=== PATIENT | male | born 1980 | race Caucasian/White ===

== ENCOUNTER 2018-10-19 16:46 | Emergency (ER) | payer OTHER ==
[~2018-10-19] VITALS: Ht 177.8 cm; Wt 99.8 kg
[~2018-10-19 16:46] MED LIST: ESOM40CA PO
[2018-10-19] MEDS ORDERED: IV NORMAL SALINE 1000ML BAG 1,000 ML IV SCH (17:05)
[2018-10-19 17:15] LABS: BASO % 1 % (0-3); EOS # 0.1 x10^3/uL (0.0-0.7); EOS % 1 % (0-3); HEMATOCRIT 39.6 % (39.0-53.0); HEMOGLOBIN 13.5 g/dL (13.0-17.5); LYMPH # 2.6 x10^3/uL (1.0-4.8); LYMPH % 33 % (24-48); MEAN CORPUSCULAR HEMOGLOBIN 30 pg (25-35); MEAN CORPUSCULAR HGB CONC 34 g/dL (31-37); MEAN CORPUSCULAR VOLUME 88 fL (79-100); MONO # 0.5 x10^3/uL (0.0-1.1); MONO % 6 % (0-9); NEUT # 4.8 x10^3uL (1.8-7.7); NEUT % 60 % (31-73); PLATELET COUNT 298 x10^3/uL (140-400); RED BLOOD COUNT 4.53 x10^6/uL (4.30-5.70); RED CELL DISTRIBUTION WIDTH 13.5 % (11.5-14.5); WHITE BLOOD COUNT 7.9 x10^3/uL (4.0-11.0)
[2018-10-19] MEDS ORDERED: ONDANSETRON PF 4 MG/2 ML VIAL. IV ONE (17:15)
[2018-10-19 17:24] LABS: PROTHROMBIN TIME PATIENT 13.5 SEC (11.7-14.0)
[2018-10-19 17:32] LABS: CALCIUM 9.7 mg/dL (8.5-10.1); CREATININE 1.2 mg/dL (0.7-1.3); GFR 67.8
[2018-10-19] MEDS: MORPHINE SULFATE 4 MG/ML VIAL. IV/SQ PRN ×2 (17:33→19:11)
[2018-10-19 17:37] LABS: ALBUMIN 4.3 g/dL (3.4-5.0); ALBUMIN/GLOBULIN RATIO 1.2 (1.0-1.7); MAGNESIUM 2.1 mg/dL (1.8-2.4); TOTAL BILIRUBIN 0.8 mg/dL (0.2-1.0); TOTAL PROTEIN 7.8 g/dL (6.4-8.2)
--- NOTE | 2018-10-19 17:58 | RAD ---
CHEST PA LATERAL Technique: PA and lateral views of the chest were obtained. Clinical History: ER PATIENT. ATRAUMATIC CHEST PAIN, NAUSEA, LIGHT-HEADED. Hx LEFT LOBECTOMY. NO PRIORS Comparison: None. Findings: The heart and pulmonary vasculature appear within normal limits. The lungs are clear. The pleural margins are clear. Impression: No acute chest process is seen. Electronically signed by: Familia Valdez III, MD (10/19/2018 5:55 PM) [facility]
[2018-10-19] MEDS ORDERED: IOHEXOL 350 MG/ML 100 ML VIAL. IV ONE (19:00)
[2018-10-19] MEDS ORDERED: CONTRAST GIVEN. MC PRN (19:00)
--- NOTE | 2018-10-19 19:41 | RAD ---
CTA chest abdomen and pelvis with contrast: History: Chest pain radiating to back "bulge on my aorta" Axial helical images of the chest abdomen and pelvis were obtained after the administration of 90 cc IV Omni 350 contrast. Timing is appropriate for arterial evaluation and multiplanar reconstruction was performed on a separate imaging workstation including 3-D maximum intensity projected imaging and 3-D arterial surface rendering. Comparison: none CTA OF THE CHEST WITH IV CONTRAST: The ascending thoracic aorta measures 3.9 cm in diameter. There is no dissection or thrombus. There is no mediastinal hematoma. The great vessels have a normal origin from the aortic arch. There is no mediastinal lymphadenopathy or hematoma. There is no hilar lymphadenopathy. There is vague patchy opacity in the lingula. Impression: 1. Vague lingular infiltrate could be discoid atelectasis or early pneumonia. 2. Dilated ascending thoracic aorta. End Impression CTA OF THE ABDOMEN WITH IV CONTRAST: Evaluation of the solid organs is limited by the arterial phase of imaging. The aorta and great vessels appear normal. There has been prior cholecystectomy. Liver: Unremarkable Spleen: Unremarkable Pancreas: Unremarkable Adrenal Glands: Unremarkable Kidneys: Unremarkable Evaluation of stomach and bowel is limited without oral contrast. There is no mass or lymphadenopathy. There is no free air. There is no free fluid. Impression: No acute findings. End Impression CTA OF THE PELVIS WITH IV CONTRAST: There has been prior appendectomy. There is no lymphadenopathy or free fluid. The bladder appears normal without extravasation of contrast. There is no pericolonic inflammation. Impression: No acute findings. End impression PQRS Compliance Statement: One or more of the following individualized dose reduction techniques were utilized for this examination: 1. Automated exposure control 2. Adjustment of the mA and/or kV according to patient size 3. Use of iterative reconstruction technique Electronically signed by: Familia Valdez III, MD (10/19/2018 7:38 PM) [facility]
[2018-10-19 21:08] VITALS: BP 128/75
[2018-10-19] MEDS ORDERED: PRED20TA PO (21:21)
[2018-10-19] MEDS ORDERED: AZIT1PAC9 PO (21:21)
--- NOTE | 2018-10-19 21:21 | PHYS DOC ---
Past Medical History Past Medical History: Diverticulosis, GERD Additional Past Medical Histor: AORTIC BULGE, SPONTANEOUS LUNG COLLAPSE (TACO FIELDS) Past Surgical History: Appendectomy, Cholecystectomy (TACO FIELDS) Alcohol Use: Occasionally Drug Use: None (TACO FIELDS) Adult General Chief Complaint Chief Complaint: CHEST PAIN HPI HPI Patient is a 38 year old M who reports he developed chest pain about 20 minutes prior to arrival while driving in his car. He feels the pain substernal and in his upper back. Pt reports some nausea associated with the pain. 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 He also was told he has a "bulge" on his aorta. Pt is not sure if this was an aneurysm or what it was and is not sure where it is located. (TACO FIELDS) Review of Systems Review of Systems Constitutional: Denies fever or chills Eyes: Denies change in visual acuity, redness, or eye pain HENT: Denies nasal congestion or sore throat Respiratory: Denies cough. Reports mild shortness of breath. Cardiovascular: Reports chest pain. GI: Denies abdominal pain, vomiting, bloody stools or diarrhea. Reports nausea. : Denies dysuria or hematuria Musculoskeletal: Denies back pain Integument: Denies rash or skin lesions Neurologic: Denies headache, focal weakness or sensory changes Endocrine: Denies polyuria or polydipsia All other systems were reviewed and found to be within normal limits, except as documented in this note. (TACO FIELDS) Current Medications Current Medications Current Medications Medications (Trade) Dose Ordered Sig/Miller Start Time Stop Time Status Last Admin Dose Admin Info (CONTRAST GIVEN -- Rx MONITORING) 1 each PRN DAILY PRN 10/19/18 19:00 10/19/18 21:51 DC Iohexol (Omnipaque 350 Mg/ml) 100 ml STK-MED ONCE 10/20/18 00:33 10/20/18 00:34 DC Morphine Sulfate (Morphine Sulfate) 4 mg PRN Q15MIN PRN 10/19/18 17:15 10/19/18 21:51 DC 10/19/18 19:11 4 MG Ondansetron HCl (Zofran) 4 mg 1X ONCE 10/19/18 17:15 10/19/18 17:16 DC 10/19/18 17:33 4 MG Sodium Chloride 1,000 ml @ 100 mls/hr Q10H 10/19/18 17:05 10/19/18 21:51 DC 10/19/18 17:32 100 MLS/HR (CHANELLE PARSON DO) Allergies Allergies Allergies Coded Allergies Type Severity Reaction Last Updated Verified No Known Drug Allergies 02/18/16 No (CHANELLE PARSON DO) Physical Exam Physical Exam Constitutional: Well developed, well nourished, no acute distress, non-toxic appearance. HENT: Normocephalic, atraumatic, bilateral external ears normal, oropharynx moist, no oral exudates, nose normal. Eyes: PERRLA, EOMI, conjunctiva normal, no discharge. Neck: Normal range of motion, no tenderness, supple, no stridor. Cardiovascular:Heart rate regular rhythm, no murmur Lungs & Thorax: Bilateral breath sounds clear to auscultation Abdomen: Bowel sounds normal, soft, no tenderness, no masses, no pulsatile masses. Skin: Warm, dry, no erythema, no rash. Back: No tenderness, no CVA tenderness. Extremities: No tenderness, no cyanosis, no clubbing, ROM intact, no edema. Neurologic: Alert and oriented X 3, normal motor function, normal sensory function, no focal deficits noted. Psychologic: Affect normal, judgement normal, mood normal. (TACO FIELDS) Current Patient Data Vital Signs Vital Signs Date Time Temp Pulse Resp B/P (MAP) Pulse Ox O2 Delivery O2 Flow Rate FiO2 10/19/18 21:08 60 15 128/75 (92) 98 Room Air 10/19/18 17:00 98.3 98.3 (CHANELLE PARSON DO) Lab Values Laboratory Tests Test 10/19/18 17:05 10/19/18 20:45 White Blood Count 7.9 x10^3/uL (4.0-11.0) Red Blood Count 4.53 x10^6/uL (4.30-5.70) Hemoglobin 13.5 g/dL (13.0-17.5) Hematocrit 39.6 % (39.0-53.0) Mean Corpuscular Volume 88 fL (79-100) Mean Corpuscular Hemoglobin 30 pg (25-35) Mean Corpuscular Hemoglobin Concent 34 g/dL (31-37) Red Cell Distribution Width 13.5 % (11.5-14.5) Platelet Count 298 x10^3/uL (140-400) Neutrophils (%) (Auto) 60 % (31-73) Lymphocytes (%) (Auto) 33 % (24-48) Monocytes (%) (Auto) 6 % (0-9) Eosinophils (%) (Auto) 1 % (0-3) Basophils (%) (Auto) 1 % (0-3) Neutrophils # (Auto) 4.8 x10^3uL (1.8-7.7) Lymphocytes # (Auto) 2.6 x10^3/uL (1.0-4.8) Monocytes # (Auto) 0.5 x10^3/uL (0.0-1.1) Eosinophils # (Auto) 0.1 x10^3/uL (0.0-0.7) Basophils # (Auto) 0.0 x10^3/uL (0.0-0.2) Prothrombin Time 13.5 SEC (11.7-14.0) Prothrombin Time INR 1.1 (0.8-1.1) Sodium Level 140 mmol/L (136-145) Potassium Level 4.0 mmol/L (3.5-5.1) Chloride Level 104 mmol/L (98-107) Carbon Dioxide Level 26 mmol/L (21-32) Anion Gap 10 (6-14) Blood Urea Nitrogen 17 mg/dL (8-26) Creatinine 1.2 mg/dL (0.7-1.3) Estimated GFR (Cockcroft-Gault) 67.8 BUN/Creatinine Ratio 14 (6-20) Glucose Level 90 mg/dL (70-99) Calcium Level 9.7 mg/dL (8.5-10.1) Magnesium Level 2.1 mg/dL (1.8-2.4) Total Bilirubin 0.8 mg/dL (0.2-1.0) Aspartate Amino Transferase (AST) 16 U/L (15-37) Alanine Aminotransferase (ALT) 23 U/L (16-63) Alkaline Phosphatase 79 U/L (46-116) Creatine Kinase 170 U/L (39-308) Creatine Kinase MB (Mass) 0.7 ng/mL (0.0-3.6) Creatine Kinase MB Relative Index 0.4 % (0-4) Troponin I Quantitative < 0.017 ng/mL (0.000-0.055) < 0.017 ng/mL (0.000-0.055) IP-Pgm-Q-Type Natriuretic Peptide 44 pg/mL (0-124) Total Protein 7.8 g/dL (6.4-8.2) Albumin 4.3 g/dL (3.4-5.0) Albumin/Globulin Ratio 1.2 (1.0-1.7) Lipase 89 U/L (73-393) Laboratory Tests 10/19/18 17:05 Laboratory Tests 10/19/18 17:05 (CHANELLE PARSON DO) EKG EKG 1st EKG 1656: NSR, 70 bpm, no STEMI 2nd EKG 1926: NSR, 65 bpm, no STEMI unchanged (TACO FIELDS) Radiology/Procedures Radiology/Procedures CXR neg for acute findings CTA chest/abd/pelvis neg for aortic problem. Possible lingular atelectasis vs early pneumonia noted on CT. (TACO FIELDS) Course & Med Decision Making Course & Med Decision Making Pertinent Labs and Imaging studies reviewed. (See chart for details) Heart Score: History: 0 EK Age: 1 Risk Factors: 1 Troponin: 0 Total: 1, very low risk Pt's EKG x2 neg Troponin x2, 3 hours apart, neg CTA neg for acute finding, but possible early pneumonia. Discussed with pt could be pleurisy related to this and will cover with abx and prednisone at this time. Pt encouraged to f/u with his PCP and to return if symptoms worsen at anytime. (TACO FIELDS) Dragon Disclaimer Dragon Disclaimer This electronic medical record was generated, in whole or in part, using a voice recognition dictation system. (TACO FIELDS) Departure Departure Impression: Primary Impression: Chest pain Additional Impression: Pleurisy Disposition: HOME, SELF-CARE Condition: IMPROVED Referrals: YANETH GORMAN MD (PCP) Patient Instructions: Chest Pain (Nonspecific), [id number], Pleurisy, [id number] Additional Instructions: Your cardiac work up and the CT of your aorta were all very reassuring. The CT mentioned that there is an area in your lung that could be early pneumonia and this could be causing some pleuritic pain. We will cover you for this and recommend very close follow up with your doctor. Scripts Azithromycin (AZITHROMYCIN PACKET) 1 Gm Packet 1 PACKET PO ONCE, #1 PACKET Prov: TACO FIELDS 10/19/18 Prednisone (PREDNISONE) 20 Mg Tablet 1 TAB PO BID, #10 TAB Prov: TACO FIELDS 10/19/18 Attending Signature Attending Signature I have reviewed the PA/BOTANY LABORATORY ASSISTANT's note and plan of care. I was available for consultation as needed during the patient's visit in the emergency department. I agree with the clinical impression, plan, and disposition. (CHANELLE PARSON DO) Problem Qualifiers TACO FIELDS Oct 19, 2018 21:21 CHANELLE PARSON DO October 26, 2018 01:17
[2018-10-20] MEDS ORDERED: IOHEXOL 350 MG/ML 100 ML VIAL. ONE (00:33)
--- NOTE | 2018-10-20 06:10 | EKG ---
[facility] [address] [place] [address] Test Date: 2018-10-19 Test Time: 16:56:25 Pat Name: JOHNSON YOUNG Department: Room: Gender: Backend Tester: : 1980 Requested By: TACO FIELDS Order Number: [id number] Reading MD: Owen Vogt Measurements Intervals [place] Rate: 70 P: 28 IN: 158 QRS: -8 QRSD: 86 T: 18 QT: 362 QTc: 393 Interpretive Statements SINUS RHYTHM LEFTWARD AXIS No previous ECG available for comparison Electronically Signed On 10-25-2018 11:57:37 CDT by Owne Vogt
--- NOTE | 2018-10-20 13:54 | EKG ---
[facility] [address] [place] [address] Test Date: 2018-10-19 Test Time: 19:26:57 Pat Name: JOHNSON YOUNG Department: Room: Gender: Fitness Centre Manager: : 1980 Requested By: TACO FIELDS Order Number: [id number] Reading MD: Owen Vogt Measurements Intervals [place] Rate: 65 P: 32 IN: 168 QRS: 0 QRSD: 92 T: 4 QT: 412 QTc: 429 Interpretive Statements SINUS RHYTHM LEFTWARD AXIS INFERIOR T WAVE CHANGES Electronically Signed On 10-25-2018 11:59:24 CDT by Owen Vogt
== END 2018-10-19 21:25 | disposition home or self-care (01) ==
LOC: ER 16:46
DX: R07.2 Precordial pain (principal); R09.1 Pleurisy; R06.02 Shortness of breath; R11.0 Nausea; K21.9 Gastro-esophageal reflux disease without esophagitis
CPT/HCPCS: 36415; 71046; 71275; 74174; 80053; 82553; 83690; 83735; 83880; 84484; 85025; 85610; 93005; 96374; 96375; 96376; 99285; J2270; J2405; J7030; Q9967